=== PATIENT | female | born 1995 | race Caucasian/White ===

== ENCOUNTER 2019-04-29 10:41 | Emergency (ER) | payer OTHER ==
[~2019-04-29] VITALS: Ht 172.7 cm; Wt 70.5 kg
[2019-04-29 10:46] VITALS: BP 121/78; TEMP 97.8
[2019-04-29 11:42] LABS: HEMATOCRIT 40.6 % (37.0-47.0); HEMOGLOBIN 13.1 g/dl (12.5-16.0); MEAN CELL VOLUME 85 fl (80.0-100.0); MEAN CORPUSCULAR HEMOGLOBIN 28 pg (27.0-31.0); MEAN CORPUSCULAR HGB CONC 32 g/dl (33.0-37.0); MEAN PLATELET VOLUME 12.5 fl (7.4-10.4); PLATELET COUNT 107 K/mm3 (130-400); RED BLOOD COUNT 4.77 M/mm3 (4.10-5.30); REDCELL DISTRIBUTION WIDTH-CV 14.8 % (11.5-14.5)
[2019-04-29 11:56] LABS: ALBUMIN 4.6 gm/dL (3.5-5.0); CREATININE, serum 0.62 (0.52-1.25); POTASSIUM 4.1 mmol/L (3.4-5.0); TOTAL PROTEIN 7.7 gm/dL (6.4-8.2)
[2019-04-29 12:04] LABS: NEUTROPHILS 32 % (42.0-75.2)
[2019-04-29 12:05] LABS: BAND 24 % (0-10); LYMPHOCYTE 35 % (20.0-51.0); PLATELET ESTIMATE NORMAL (NORMAL)
[2019-04-29 12:25] LABS: TSH w REFLEX 1.94 uIU/mL (0.465-4.680)
[2019-04-29 13:00] VITALS: PULSE 83
[2019-04-29 13:08] LABS: MONOSCREEN NEGATIVE
== END 2019-04-29 13:00 | disposition home or self-care (01) ==
LOC: COL.ER 10:41
PROVIDERS: Emergency Medicine
DX: R60.9 Edema, unspecified (principal)